=== PATIENT | female | born 1990 | race African-American/Black ===

== ENCOUNTER 2017-09-07 17:37 | Emergency (ER) | payer SELFPAY ==
[~2017-09-07] VITALS: Ht 167.6 cm; Wt 63.5 kg
[2017-09-07 17:50] VITALS: BP 132/104
== END 2017-09-07 20:35 | disposition left against medical advice (07) ==
LOC: ER 17:48
DX: F41.9 Anxiety disorder, unspecified (principal); F12.10 Cannabis abuse, uncomplicated; Z53.21 Procedure and treatment not carried out due to patient leaving prior to being seen by health care provider

== ENCOUNTER 2019-07-18 13:49 | Emergency (ER) | payer MEDICAID ==
[~2019-07-18] VITALS: Ht 170.2 cm; Wt 65.8 kg
[2019-07-18 13:54] VITALS: BP 155/90
== END 2019-07-18 15:37 | disposition home or self-care (01) ==
LOC: ER 13:49
DX: H66.92 Otitis media, unspecified, left ear (principal)

== ENCOUNTER 2024-01-28 03:50 | Inpatient (IN) | payer MEDICAID, OTHER ==
[~2024-01-28] VITALS: Ht 167.6 cm; Wt 81.4 kg
[2024-01-28 04:29] LABS: Basophils # (auto) 0 10 ^3/uL (0-0.2); Basophils % (auto) 0.3 % (0.0-2.0); Eosinophils # (auto) 0 10 ^3/uL (0-0.8); Hematocrit 40.2 % (36.0-46.0); Hemoglobin 13.8 g/dL (12.2-16.2); Lymphocytes # (auto) 2.1 10 ^3/uL (0.4-5.4); Lymphocytes % (auto) 24.8 % (10.0-50.0); Mean Corpuscular Hemoglobin 30.4 pg (28.0-32.0); Mean Corpuscular Hgb Conc. 34.2 g/dL (32.0-36.0); Mean Corpuscular Volume 88.8 fL (80.0-100.0); Monocytes # (auto) 0.5 10 ^3/uL (0-1.3); Monocytes % (auto) 6.1 % (0.0-12.0); Neutrophils # (auto) 5.7 10 ^3/uL (1.6-8.6); Neutrophils % (auto) 68.8 % (37.0-80.0); Nucleated Red Blood Cells % 0.1 %; Red Blood Cells 4.53 10^6/uL (4.0-5.20); Red Cell Distribution Width 16.7 % (11.8-14.3); White Blood Cell 8.4 10^3/uL (4.4-10.8)
[2024-01-28 04:44] LABS: INR 1.15 (0.9-1.15); Partial Thromboplastin Time 25.3 SEC (24.5-34.5); Prothrombin Time 12.1 sec (9.3-11.8)
[2024-01-28 04:47] LABS: Alanine Aminotransferase 41 U/L (7-40); Alkaline Phosphatase 87 U/L (46-116); Anion Gap 13 (5-15); Aspartate Aminotransferase 50 U/L (13-40); BUN/Creatinine Ratio 10.2 (10.0-20.0); Bilirubin, Total 0.9 mg/dL (0.2-1.0); Blood Urea Nitrogen 9 mg/dL (9-23); Calcium 10.8 mg/dL (8.7-10.4); Carbon Dioxide 26 mmol/L (20-30); Chloride 95 mmol/L (98-107); Glucose 110 mg/dL (74-106); Magnesium 1.2 mg/dL (1.6-2.6); Potassium 2.9 mmol/L (3.5-5.1); Sodium 134 mmol/L (136-145); Total Protein 7.8 g/dL (5.7-8.2)
[2024-01-28] MEDS: MAALOX PLUS or MAALOX 30 ML PO ONE ×2 (07:04→12:12)
[2024-01-28] MEDS: LORazepam 2MG/ML-1ML VIAL IV ONE (08:15)
[2024-01-28] MEDS: POTASSIUM CHL 20 Meq TABLET PO ONE ×2 (08:25→19:59)
[2024-01-28 08:41] LABS: Urine Bacteria FEW /hpf (None Seen); Urine Blood 3+ /uL (Negative); Urine Clarity Turbid (Clear); Urine Color Yellow (Yellow); Urine Hyaline Cast FEW /lpf (0 - 2); Urine Mucus FEW (None Seen); Urine Protein, UAD 2+ (Negative); Urine Specific Gravity 1.025 (1.001-1.035); Urine Urobilinogen 4 mg/dL (Negative); Urine WBC 23 /hpf (0 - 5)
[2024-01-28 09:34] LABS: Amphetamine Screen, Urine Neg (NEGATIVE); Barbiturate Scree,Urine Neg (NEGATIVE); Benzodiazephine Screen, Urine Neg (NEGATIVE); Cannabinoid Screen, Urine Pos (NEGATIVE); Cocaine Screen, Urine Pos (NEGATIVE); Opiate Scree,Urine Neg (NEGATIVE); Phencyclidine Screen, Urine Neg (NEGATIVE)
[2024-01-28] MEDS ORDERED: METOCLOPRAMIDE HCL 5MG/ml INJ 2ml VIAL IV PRN (10:00)
[2024-01-28] MEDS: MAGNESIUM SULFATE 1GM/100ML 100 ML IV SCH (10:00)
[2024-01-28] MEDS: SODIUM CHLORIDE 0.9% 2,000 ML IV ONE (10:40)
[2024-01-28 19:00] LABS: Potassium 3.5 mmol/L (3.5-5.1)
[2024-01-28 19:16] LABS: Magnesium 2.7 mg/dL (1.6-2.6)
[2024-01-28] MEDS: FOLIC ACID 1 MG, MULTIPLE VITAMIN 10 ML, MAGNESIUM SULF SDV 50% 8 MEQ, THIAMINE INJ 100... INJ SCH (20:01)
[2024-01-28] MEDS: ACETAMINOPHEN 325 MG TAB PO PRN (20:30)
[2024-01-28] MEDS: ONDANSETRON HCL 4 MG/2 ML VIAL IV PRN (23:24)
[2024-01-29] VITALS (8 sets, daily range): BP systolic 127–144; BP diastolic 88–100; PULSE 82–125; RESP 12–20; TEMP 97.9–100.4; O2SAT 94–100
[2024-01-29] MEDS: LORazepam 2MG/ML-1ML VIAL IV PRN (03:45)
[2024-01-29 06:51] LABS: Basophils # (auto) 0 10 ^3/uL (0-0.2); Basophils % (auto) 0.4 % (0.0-2.0); Eosinophils # (auto) 0 10 ^3/uL (0-0.8); Eosinophils % (auto) 0.3 % (0.0-7.0); Hematocrit 33.6 % (36.0-46.0); Hemoglobin 11.3 g/dL (12.2-16.2); Lymphocytes # (auto) 2.1 10 ^3/uL (0.4-5.4); Lymphocytes % (auto) 26.7 % (10.0-50.0); Mean Corpuscular Hemoglobin 29.8 pg (28.0-32.0); Mean Corpuscular Hgb Conc. 33.6 g/dL (32.0-36.0); Mean Corpuscular Volume 88.6 fL (80.0-100.0); Monocytes # (auto) 0.4 10 ^3/uL (0-1.3); Monocytes % (auto) 5.6 % (0.0-12.0); Neutrophils # (auto) 5.2 10 ^3/uL (1.6-8.6); Red Blood Cells 3.79 10^6/uL (4.0-5.20); Red Cell Distribution Width 16.8 % (11.8-14.3); White Blood Cell 7.8 10^3/uL (4.4-10.8)
[2024-01-29 07:15] LABS: Alanine Aminotransferase 41 U/L (7-40); Albumin 4.3 g/dL (3.2-4.8); Alkaline Phosphatase 72 U/L (46-116); Anion Gap 6 (5-15); Aspartate Aminotransferase 101 U/L (13-40); BUN/Creatinine Ratio 7.9 (10.0-20.0); Blood Urea Nitrogen 5 mg/dL (9-23); Calcium 9.6 mg/dL (8.5-10.1); Carbon Dioxide 27 mmol/L (20-30); Chloride 99 mmol/L (98-107); Glucose 92 mg/dL (74-106); Magnesium 2.2 mg/dL (1.6-2.6); Sodium 132 mmol/L (136-145)
[2024-01-29 07:16] LABS: Bilirubin, Total 0.7 mg/dL (0.2-1.0); Total Protein 6.8 g/dL (5.7-8.2)
[2024-01-29] MEDS: HYDROcodone-ACET 5/325MG TAB PO PRN (11:05)
[2024-01-29] MEDS: METOCLOPRAMIDE HCL 5MG/ml INJ 2ml VIAL IV PRN (14:57)
[2024-01-29] MEDS: LACTATED RINGER'S 1,000 ML IV ONE (15:02)
[2024-01-29] MEDS: SUCRALFATE 1 GM/10 ML ORAL SUSP PO SCH (16:25)
[2024-01-29] MEDS: PANTOPRAZOLE 40 MG TAB PO SCH (16:30)
[2024-01-30 00:52] VITALS: BP 153/107; PULSE 115; RESP 16; TEMP 99; O2SAT 100
[2024-01-30 05:00] VITALS: BP 146/99; PULSE 115; RESP 16; TEMP 98.2; O2SAT 100
[2024-01-30 06:48] LABS: Hematocrit 33.1 % (36.0-46.0)
[2024-01-30 07:10] LABS: Anion Gap 4 (5-15); Calcium 9.8 mg/dL (8.5-10.1); Carbon Dioxide 29 mmol/L (20-30); Chloride 100 mmol/L (98-107); Potassium 3.7 mmol/L (3.5-5.1); Sodium 133 mmol/L (136-145)
[2024-01-30 07:16] LABS: Glucose 101 mg/dL (74-106)
[2024-01-30 07:17] LABS: BUN/Creatinine Ratio 8.2 (10.0-20.0); Blood Urea Nitrogen < 5 mg/dL (9-23)
[2024-01-30 07:50] LABS: Lipase 51 U/L (12-53)
[2024-01-30 08:30] VITALS: BP 152/79; PULSE 123; RESP 18; TEMP 99; O2SAT 99
[2024-01-30 12:30] VITALS: BP 139/113; PULSE 107; RESP 18; TEMP 99.1; O2SAT 99
[2024-01-30] MEDS: METOPROLOL TARTRATE 50 MG TAB PO SCH (13:21)
[2024-01-30] MEDS: LACTATED RINGER'S 1,000 ML IV SCH (13:22)
[2024-01-30 16:20] VITALS: BP 136/92; PULSE 94; RESP 18; TEMP 99; O2SAT 99
[2024-01-30 21:38] VITALS: BP 125/80; PULSE 113; RESP 18; TEMP 98.4; O2SAT 99
[2024-01-30] MEDS: TEMAZEPAM 15 MG CAP PO PRN (21:53)
[2024-01-30] MEDS ORDERED: MAALOX PLUS or MAALOX 30 ML PO PRN (23:15)
[2024-01-31] VITALS (8 sets, daily range): BP systolic 124–136; BP diastolic 74–98; PULSE 91–150; RESP 15–19; TEMP 98–99.2; O2SAT 97–100
[2024-01-31 06:41] LABS: INR 1.03 (0.9-1.15); Partial Thromboplastin Time 24.3 SEC (24.5-34.5); Prothrombin Time 10.9 sec (9.3-11.8)
[2024-01-31 12:22] LABS: Urine Bacteria FEW /hpf (None Seen); Urine Blood 3+ /uL (Negative); Urine Clarity Turbid (Clear); Urine Color Light-Yellow (Yellow); Urine Mucus FEW (None Seen); Urine Protein, UAD Negative (Negative); Urine Specific Gravity 1.007 (1.001-1.035); Urine Urobilinogen Normal (Negative); Urine WBC 4 /hpf (0 - 5); Urine pH 6.5 (5.0-9.0)
[2024-01-31] MEDS: KETOROLAC TROMETH 30 MG/ML 1ML VIAL IV ONE (13:00)
[2024-01-31] MEDS ORDERED: fentaNYL CITRATE 100 MCG/2 ML VL IV PRN (13:00)
[2024-01-31] MEDS: METOCLOPRAMIDE HCL 5MG/ml INJ 2ml VIAL IV ONE (13:00)
[2024-01-31] MEDS ORDERED: MORPHINE SULFATE INJ 2 MG/ml SYRG IV PRN (13:00)
[2024-01-31] MEDS ORDERED: HYDROmorphone HCL 2 MG/ML VL/or syr IV PRN ×2 (13:00)
[2024-01-31] MEDS ORDERED: SODIUM CHLORIDE LOCK 10 ML ONE (14:09)
[2024-01-31] MEDS ORDERED: MIDAZOLAM HCL 2MG/2ML 2ml VIAL (1mg/ml) ONE (14:09)
[2024-01-31] MEDS ORDERED: KETAMINE 50mg/ML 1ml syringe ONE (14:09)
[2024-01-31] MEDS ORDERED: fentaNYL CITRATE 100 MCG/2 ML VL ONE (14:09)
[2024-01-31] MEDS ORDERED: PROPOFOL 10 MG/ML 20 ML IV ONE (14:09)
[2024-01-31] MEDS ORDERED: ROCURONIUM 10MG/ML 10ML VIAL IV ONE (14:09)
[2024-01-31] MEDS: LIDOCAINE VISCOUS 2% 15ML UD ONE (14:24)
[2024-01-31] MEDS: PANTOPRAZOLE 40 MG/10 ML VIAL INJ IV SCH (21:44)
[2024-02-01] VITALS (8 sets, daily range): BP systolic 125–138; BP diastolic 77–98; PULSE 92–107; RESP 16–18; TEMP 98.2–98.8; O2SAT 99–100
[2024-02-01 06:14] LABS: Basophils # (auto) 0 10 ^3/uL (0-0.2); Basophils % (auto) 0.2 % (0.0-2.0); Eosinophils # (auto) 0.1 10 ^3/uL (0-0.8); Eosinophils % (auto) 1.9 % (0.0-7.0); Hematocrit 33.3 % (36.0-46.0); Hemoglobin 11.1 g/dL (12.2-16.2); Lymphocytes # (auto) 2.1 10 ^3/uL (0.4-5.4); Lymphocytes % (auto) 37.6 % (10.0-50.0); Mean Corpuscular Hemoglobin 29.8 pg (28.0-32.0); Mean Corpuscular Hgb Conc. 33.3 g/dL (32.0-36.0); Mean Corpuscular Volume 89.5 fL (80.0-100.0); Monocytes # (auto) 0.5 10 ^3/uL (0-1.3); Monocytes % (auto) 9.8 % (0.0-12.0); Neutrophils # (auto) 2.8 10 ^3/uL (1.6-8.6); Neutrophils % (auto) 50.5 % (37.0-80.0); Nucleated Red Blood Cells % 0.1 %; Red Blood Cells 3.72 10^6/uL (4.0-5.20); White Blood Cell 5.6 10^3/uL (4.4-10.8)
[2024-02-01 06:32] LABS: Alanine Aminotransferase 56 U/L (7-40); Albumin 3.5 g/dL (3.2-4.8); Alkaline Phosphatase 61 U/L (46-116); Anion Gap 3 (5-15); Aspartate Aminotransferase 55 U/L (13-40); Bilirubin, Total 0.3 mg/dL (0.2-1.0); Calcium 9.5 mg/dL (8.7-10.4); Carbon Dioxide 30 mmol/L (20-30); Chloride 102 mmol/L (98-107); Glucose 93 mg/dL (74-106); Potassium 3.6 mmol/L (3.5-5.1); Sodium 135 mmol/L (136-145); Total Protein 5.7 g/dL (5.7-8.2)
[2024-02-01 06:36] LABS: BUN/Creatinine Ratio 8.6 (10.0-20.0); Blood Urea Nitrogen < 5 mg/dL (9-23)
[2024-02-01] MEDS ORDERED: PANT40TA2 PO (13:55)
[2024-02-01] MEDS ORDERED: METO25TA5 PO (13:55)
[2024-02-01] MEDS ORDERED: SUCR1TAB31 OR (13:55)
[2024-02-01] MEDS ORDERED: ZOFR4T PO (13:55)
== END 2024-02-01 21:54 | disposition home or self-care (01) | DRG 241 ==
LOC: ER 03:50 → EDBD 03:50 → EAST 09:53 → OVERFLOW 09:53 → EAST 01-29 09:05
PROVIDERS: ADMIT Nurse Practitioner Family; ATTEND Internal Medicine
PROC: 0DB68ZX Excision of Stomach, Via Natural or Artificial Opening Endoscopic, Diagnostic (ICD-10-PCS; 2024-01-31)
PROC: 0DB48ZX Excision of Esophagogastric Junction, Via Natural or Artificial Opening Endoscopic, Diagnostic (ICD-10-PCS; 2024-01-31)
PROC: 0DB98ZX Excision of Duodenum, Via Natural or Artificial Opening Endoscopic, Diagnostic (ICD-10-PCS; principal; 2024-01-31 14:26)
DX: K29.70 Gastritis, unspecified, without bleeding (principal); D62 Acute posthemorrhagic anemia; K29.80 Duodenitis without bleeding; K27.9 Peptic ulcer, site unspecified, unspecified as acute or chronic, without hemorrhage or perforation; E83.42 Hypomagnesemia; K22.10 Ulcer of esophagus without bleeding; E86.0 Dehydration; E87.6 Hypokalemia; F10.139 Alcohol abuse with withdrawal, unspecified; F12.10 Cannabis abuse, uncomplicated; I10 Essential (primary) hypertension; R74.01 Elevation of levels of liver transaminase levels; K44.9 Diaphragmatic hernia without obstruction or gangrene; K31.7 Polyp of stomach and duodenum; Z79.899 Other long term (current) drug therapy; Y90.0 Blood alcohol level of less than 20 mg/100 ml
CPT/HCPCS: 36415; 71045; 80048; 80053; 80307; 80320; 81001; 81025; 83690; 83735; 83880; 84132; 84484; 84702; 85014; 85018; 85025; 85610; 85730; 86850; 86900; 86901; 93005; C9113; G0378; J2250; J2405; J2704